=== PATIENT | female | born 1935 | race Caucasian/White ===

== ENCOUNTER 2017-03-01 18:19 | Inpatient (IN) | payer MEDICAID, MEDICARE ==
[~2017-03-01] VITALS: Ht 142.2 cm; Wt 69.9 kg
[2017-03-01 20:11] LABS: BASOPHIL % 0.9 % (0-2); PLATELET COUNT 182 x10^3mcL (130-400); RED CELL DISTRIBUTION WIDTH 14.3 % (11.5-14.5)
[2017-03-01 20:17] LABS: CALCIUM 8.1 mg/dL (8.5-10.1); CHLORIDE SERUM 105 mmol/L (98-107); CREATININE SERUM 0.8 mg/dL (0.6-1.0); GLUCOSE SERUM 111 mg/dL (74-106); POTASSIUM SERUM 3.6 mmol/L (3.5-5.1); SODIUM SERUM 135 mmol/L (136-145)
[2017-03-01 20:21] LABS: ALKALINE PHOSPHATASE 70 U/L (46-116); ALT/SGPT 24 U/L (14-59); AST/SGOT 26 U/L (15-37); BILIRUBIN TOTAL 0.23 mg/dL (0.20-1.00); TOTAL PROTEIN, SERUM 6.4 g/dL (6.4-8.2)
[2017-03-01 20:25] LABS: ALBUMIN 3.3 g/dL (3.4-5.0)
[2017-03-01 20:27] LABS: UA SPECIFIC GRAVITY 1.025 (1.005-1.035); microscopic required? YES; urine erythrocyte 2+ (NEGATIVE)
[2017-03-01 21:49] LABS: CHOLESTEROL/HDL RATIO 3.7; MAGNESIUM 1.4 mg/dL (1.8-2.4); PHOSPHOROUS 2.3 mg/dL (2.5-4.9)
[2017-03-01 22:15] LABS: FREE T4 1.25 ng/dL (0.76-1.46); FREE THYROXINE INDEX 3.3 ug/dL (1.4-4.5); T4(THYROXINE) 9.3 ug/dL (4.7-13.3)
[2017-03-01 22:25] LABS: T3 TOTAL 0.87 ng/mL
[2017-03-01 22:40] VITALS: BP 121/41
[2017-03-02] MEDS ORDERED: LOSARTAN POTASS50 M1 PO (00:04)
[2017-03-02] MEDS ORDERED: PROTONIX20 MG PO (00:04)
[2017-03-02] MEDS ORDERED: PROPRANOLOL HY120 MG PO (00:06)
[2017-03-02 05:35] VITALS: BP 146/55
[2017-03-02 06:54] LABS: CALCIUM 8.2 mg/dL (8.5-10.1); CARBON DIOXIDE 22.6 mmol/L (21-32); CHLORIDE SERUM 106 mmol/L (98-107); CREATININE SERUM 0.7 mg/dL (0.6-1.0); GLUCOSE SERUM 104 mg/dL (74-106); MAGNESIUM 2.5 mg/dL (1.8-2.4); PHOSPHOROUS 3.4 mg/dL (2.5-4.9); POTASSIUM SERUM 3.2 mmol/L (3.5-5.1); SODIUM SERUM 141 mmol/L (136-145)
[2017-03-02 06:59] LABS: BASOPHIL % 0.2 % (0-2); PLATELET COUNT 163 x10^3mcL (130-400)
[2017-03-02 09:25] VITALS: BP 102/46
[2017-03-02 11:13] VITALS: Ht 142.2 cm; Wt 69.9 kg
[2017-03-02 14:08] VITALS: BP 131/45
[2017-03-02 16:30] VITALS: BP 134/44
[2017-03-02 21:08] VITALS: BP 146/81
[2017-03-03 05:11] VITALS: BP 134/51
[2017-03-03] MEDS ORDERED: TAM75 PO (06:19)
[2017-03-03] MEDS ORDERED: LAC PO (06:21)
[2017-03-03] MEDS ORDERED: MAC100 PO (06:22)
[2017-03-03 06:57] LABS: BASOPHIL % 0.5 % (0-2); PLATELET COUNT 177 x10^3mcL (130-400)
[2017-03-03 07:01] LABS: RED CELL DISTRIBUTION WIDTH 14.7 % (11.5-14.5)
[2017-03-03 07:45] LABS: CALCIUM 8.8 mg/dL (8.5-10.1); CARBON DIOXIDE 22.8 mmol/L (21-32); CHLORIDE SERUM 109 mmol/L (98-107); CREATININE SERUM 0.7 mg/dL (0.6-1.0); GLUCOSE SERUM 87 mg/dL (74-106); POTASSIUM SERUM 4.9 mmol/L (3.5-5.1); SODIUM SERUM 143 mmol/L (136-145)
[2017-03-03 09:50] VITALS: BP 134/47
[2017-03-03 10:37] VITALS: BP 134/51
[2017-03-03 12:41] VITALS: BP 172/60
== END 2017-03-03 15:09 | disposition home or self-care (01) | DRG 463 ==
LOC: ED 18:19 → DU 21:07
PROVIDERS: Emergency Medicine; Family Medicine Sports Medicine
DX: N39.0 Urinary tract infection, site not specified (principal); G93.41 Metabolic encephalopathy; R31.29 Other microscopic hematuria; J09.X2 Influenza due to identified novel influenza A virus with other respiratory manifestations; E83.42 Hypomagnesemia; E83.39 Other disorders of phosphorus metabolism; F03.90 Unspecified dementia, unspecified severity, without behavioral disturbance, psychotic disturbance, mood disturbance, and anxiety; B96.20 Unspecified Escherichia coli [E. coli] as the cause of diseases classified elsewhere; I10 Essential (primary) hypertension; R73.03 Prediabetes; Z68.29 Body mass index [BMI] 29.0-29.9, adult; Z16.24 Resistance to multiple antibiotics
CPT/HCPCS: 83880; 84439; 87804; 97110-GP; 97530-GP; J0696; J3475; J7030; J7620; Q0092